=== PATIENT | male | born 1990 | race Two or more races ===

== ENCOUNTER 2023-02-13 19:13 | Emergency (ER) | payer SELFPAY ==
[2023-02-13 19:38] VITALS: TEMP 98.2; BMI 35.9
[2023-02-13 19:55] LABS: HEMATOCRIT 43.8 % (35.4-49); HEMOGLOBIN 14.5 G/dL (11.7-16.9); MCH 30.1 pg (25.7-33.7); MEAN CELL VOLUME 91.3 fl (80-96); MEAN PLT VOLUME 9.4 fl (7.5-11.1); PLATELET COUNT 252.1 10^3/uL (134-434); RDW 14.8 % (11.9-15.9); WHITE BLOOD COUNT 8.6 10^3/uL (4.0-10.8)
[2023-02-13 20:05] LABS: ALBUMIN 4.1 g/dl (3.4-5.0); CALCIUM 8.8 mg/dl (8.5-10); CREATININE 1.6 mg/dl (0.55-1.3); POTASSIUM 4.2 mmol/L (3.5-5.1); TOT PROT 7.2 g/dl (6.4-8.2)
[2023-02-13 22:05] VITALS: RESP 20
[2023-02-13] MEDS ORDERED: cloNIDine HCL 0.1 MG TABLET ONE (22:15)
[2023-02-13] MEDS ORDERED: FLUCONAZOLE 150 MG TABLET PO ONE (22:35)
[2023-02-13] MEDS ORDERED: cloNIDine HCL 0.1 MG TABLET PO ONE (23:08)
[2023-02-13] MEDS ORDERED: FUROSEMIDE 40 MG/4 ML INJECTABLE VIAL IVPUSH ONE (23:35)
[2023-02-13] MEDS ORDERED: FUROSEMIDE 40 MG/4 ML INJECTABLE VIAL ONE (23:36)
[2023-02-14] VITALS: BP 164/100; PULSE 101
== END 2023-02-14 00:19 | disposition admitted as inpatient to this hospital (09) ==
LOC: FER 19:13
CPT/HCPCS: 36415; 71045-TC-FY; 80053; 82550; 82553; 83880; 84484; 85027; 85379; 93005; 99285-25; C9803-CS; U0003; U0005